=== PATIENT | male | born 1945 | race Caucasian/White ===

== ENCOUNTER → 2021-12-30 11:06 | Outpatient (CLI) | payer MEDICARE, OTHER, SELFPAY ==
--- NOTE | 2021-12-30 | DI.RAD.S_ITS ---
PROCEDURE: FL BARIUM SWALLOW INDICATIONS: Dysphagia, unspecified COMPARISON: None. FINDINGS: Function: There is normal esophageal peristalsis. No elicited gastroesophageal reflux. There is normal transit of a calibrated barium tablet through the esophagus into the stomach. Normal swallowing reflex noted. There is pooling within the bilateral vallecula which was not completely cleared with repeat swallows. Laryngotracheal aspiration identified during the study. Morphology: Air-contrast images demonstrate normal mucosal morphology. Single contrast views show no esophageal strictures, extrinsic mass effects, or diverticula. Limited images of the stomach demonstrate normal appearance. IMPRESSION: 1. Laryngotracheal aspiration. 2. Bilateral vallecular pooling. Dictated by: Margarita Khan MD, PhD on 12/30/2021 at 12:31 Approved by: Margarita Khan MD, PhD on 12/30/2021 at 12:32
== END ==
PROVIDERS: PCP Physician Assistant; Referring Provider Internal Medicine Gastroenterology; Visit Provider Internal Medicine Gastroenterology
DX: R13.10 Dysphagia, unspecified (principal)
CPT/HCPCS: 74220